=== PATIENT | male | born 1995 | race Hispanic/Latino ===

== ENCOUNTER 2020-03-04 15:37 | Inpatient (IN) | payer OTHER ==
[2020-03-04] VITALS (11 sets, daily range): BP systolic 144–171; BP diastolic 79–100
[~2020-03-04] VITALS: Ht 180.3 cm; Wt 96.6 kg
[2020-03-04] MEDS ORDERED: SODIUM CHLORIDE 0.9% 1000ML 1,000 ML IV ONE ×2 (15:56→18:45)
[2020-03-04] MEDS ORDERED: ONDANSETRON HCL 4 MG/2 ML VIAL ONE ×3 (15:56→19:58)
[2020-03-04] MEDS ORDERED: MORPHINE SULFATE 4 MG/1ML SYG ONE ×2 (15:56→18:46)
[2020-03-04 16:16] LABS: BASOPHILS % (AUTO) 0.4 % (0.0-5.0); HEMATOCRIT 47.2 % (42-54); LYMPHOCYTES % (AUTO) 8.5 % (21.0-51.0); MEAN CORPUSCULAR HEMOGLOBIN 29.1 pg (27.0-33.0); MEAN CORPUSCULAR HGB CONC 33.7 g/dL (32.0-36.0); MEAN CORPUSCULAR VOLUME 86.4 fL (79-99); MONOCYTES % (AUTO) 11.6 % (3.0-13.0); NEUTROPHILS % (AUTO) 79.1 % (40.0-77.0); PLATELET COUNT (AUTO) 305 K/uL (130-400); RED BLOOD CELL COUNT(AUTO) 5.46 MIL/uL (4.50-6.20); RED CELL DISTRIBUTION WIDTH 11.3 % (11.0-15.5); WHITE BLOOD COUNT (AUTO) 16.3 K/uL (4.8-10.8)
[2020-03-04 16:17] LABS: APPEARANCE,URINE Clear (CLEAR); BILIRUBIN,URINE Negative (NEGATIVE); COLOR,URINE Yellow (YELLOW); GLUCOSE, URINE (UA) Negative (NEGATIVE); KETONES,URINE Trace mg/dL (NEGATIVE); LEUKOCYTE ESTERASE ,URINE Negative (NEGATIVE); NITRATE,URINE Negative (NEGATIVE); OCCULT BLOOD,URINE Negative (NEGATIVE); PH,URINE 5.5 (5.0-8.0); PROTEIN,URINE Negative (NEGATIVE)
[2020-03-04] MEDS ORDERED: MORPHINE SULFATE 2 MG/ML 1ML SYG ONE (16:33)
[2020-03-04 16:34] LABS: CREATININE 1.1 mg/dL (0.5-1.5); POTASSIUM 4.2 mmol/L (3.5-5.1)
[2020-03-04 16:40] LABS: BILIRUBIN,TOTAL 0.7 mg/dL (0.2-1.0); TOTAL PROTEIN, SERUM 8.9 g/dL (6.0-8.3)
[2020-03-04] MEDS ORDERED: IOHEXOL-350 75 ML VIAL IV ONE (16:48)
[2020-03-04] MEDS ORDERED: ZOSYN 3.375GM+NS 50ML 50 ML IV ONE (18:46)
[2020-03-04] MEDS: SODIUM CHLORIDE 0.9% 1000ML 1,000 ML IV SCH (19:15)
[2020-03-04] MEDS ORDERED: PROPOFOL 10 MG/ML 20ML VIAL IV ONE ×2 (19:58→21:28)
[2020-03-04] MEDS ORDERED: DEXAMETHASONE SOD PHOSPHATE 10MG/ML 1ML VIAL ONE (19:58)
[2020-03-04] MEDS ORDERED: MIDAZOLAM HCL 1 MG/ML 2ML VIAL ONE (19:58)
[2020-03-04] MEDS ORDERED: LIDOCAINE PF 2% 5ML ABBOJECT ONE (19:58)
[2020-03-04] MEDS ORDERED: FENTANYL CITRATE PF 50 MCG/1 ML 2ML VIAL ONE ×2 (19:59→20:40)
[2020-03-04] MEDS ORDERED: ROCURONIUM 10MG/1ML SYR 10 MG/ML ML ONE (19:59)
[2020-03-04] MEDS ORDERED: BUPIVACAINE/PF 0.5% 30ML VIAL ONE (20:35)
[2020-03-04] MEDS ORDERED: GLYCOPYRROLATE 1 MG/5 ML SYRINGE ONE (21:40)
[2020-03-04] MEDS ORDERED: NEOSTIGMINE 5MG/5ML SYR IV ONE (21:40)
[2020-03-04] MEDS: LACTATED RINGERS 1000ML 1,000 ML IV SCH (21:52)
[2020-03-04] MEDS ORDERED: ONDANSETRON HCL 4 MG/2 ML VIAL IVP PRN (22:00)
[2020-03-04] MEDS ORDERED: MORPHINE SULFATE 4 MG/1ML SYG IV PRN (22:00)
[2020-03-05 03:48] VITALS: BP 121/64
[2020-03-05 04:45] LABS: BASOPHILS % (AUTO) 0.2 % (0.0-5.0); EOSINOPHILS % (AUTO) 0.9 % (0.0-8.0); HEMATOCRIT 42.5 % (42-54); LYMPHOCYTES % (AUTO) 2.2 % (21.0-51.0); MEAN CORPUSCULAR HGB CONC 33.6 g/dL (32.0-36.0); MEAN CORPUSCULAR VOLUME 86.2 fL (79-99); MONOCYTES % (AUTO) 9.2 % (3.0-13.0); NEUTROPHILS % (AUTO) 86.9 % (40.0-77.0); PLATELET COUNT (AUTO) 284 K/uL (130-400); RED BLOOD CELL COUNT(AUTO) 4.93 MIL/uL (4.50-6.20); RED CELL DISTRIBUTION WIDTH 11.2 % (11.0-15.5); WHITE BLOOD COUNT (AUTO) 23.6 K/uL (4.8-10.8)
[2020-03-05 04:56] LABS: CREATININE 1.3 mg/dL (0.5-1.5); POTASSIUM 4.1 mmol/L (3.5-5.1)
[2020-03-05] MEDS ORDERED: ZOSYN 3.375GM+NS 50ML 50 ML IV SCH ×2 (05:00→21:00)
[2020-03-05] MEDS: SODIUM CHLORIDE 0.9% 1000ML 1,000 ML IV SCH ×4 (05:15→18:55)
[2020-03-05] MEDS: MORPHINE SULFATE 4 MG/1ML SYG IVP PRN ×3 (05:49→20:04)
[2020-03-05] MEDS: LACTATED RINGERS 1000ML 1,000 ML IV SCH ×2 (05:49→20:04)
[2020-03-05] MEDS: ZOSYN 3.375GM+NS 50ML 50 ML IV SCH ×3 (05:56→20:04)
[2020-03-05 08:13] VITALS: BP 137/83
[2020-03-05 12:31] VITALS: BP 137/78
[2020-03-05 16:13] VITALS: BP 139/82
[2020-03-05 19:48] VITALS: BP 146/81
[2020-03-05] MEDS: ONDANSETRON HCL 4 MG/2 ML VIAL IVP PRN (20:03)
[2020-03-05 23:59] VITALS: BP 133/78
[2020-03-06] VITALS (7 sets, daily range): BP systolic 124–159; BP diastolic 67–94
[2020-03-06] MEDS: ONDANSETRON HCL 4 MG/2 ML VIAL IVP PRN ×4 (03:54→20:19)
[2020-03-06 04:55] LABS: BASOPHILS % (AUTO) 0.2 % (0.0-5.0); EOSINOPHILS % (AUTO) 0.4 % (0.0-8.0); HEMATOCRIT 42.3 % (42-54); LYMPHOCYTES % (AUTO) 2.9 % (21.0-51.0); MEAN CORPUSCULAR HEMOGLOBIN 28.7 pg (27.0-33.0); MEAN CORPUSCULAR HGB CONC 33.1 g/dL (32.0-36.0); MEAN CORPUSCULAR VOLUME 86.7 fL (79-99); MONOCYTES % (AUTO) 6.5 % (3.0-13.0); NEUTROPHILS % (AUTO) 89.2 % (40.0-77.0); PLATELET COUNT (AUTO) 274 K/uL (130-400); RED BLOOD CELL COUNT(AUTO) 4.88 MIL/uL (4.50-6.20); RED CELL DISTRIBUTION WIDTH 11.3 % (11.0-15.5); WHITE BLOOD COUNT (AUTO) 18.5 K/uL (4.8-10.8)
[2020-03-06 05:03] LABS: CREATININE 1.1 mg/dL (0.5-1.5); POTASSIUM 3.6 mmol/L (3.5-5.1)
[2020-03-06] MEDS: ZOSYN 3.375GM+NS 50ML 50 ML IV SCH ×3 (05:34→20:19)
[2020-03-06] MEDS: SODIUM CHLORIDE 0.9% 1000ML 1,000 ML IV SCH ×2 (08:15→11:15)
[2020-03-06] MEDS: MORPHINE SULFATE 4 MG/1ML SYG IVP PRN ×3 (11:02→16:20)
--- NOTE | 2020-03-06 11:04 | NUR ---
EMESIS X1 PATIENT IS VERY DISTENDED. COMPLAINS OF FEELING LIKE HAVING A BM BUT UNABLE TO, NOT PASSING GAS YET, HE WALKED AROUND THE UNIT TO SEE IF THAT HELPED. C/O ABD PAIN, TENDERNESS TO THE RLQ, N&V. ZOFRAN AND MORPHINE GIVEN. WILL CONTINUE TO MONITOR
[2020-03-06] MEDS: LACTATED RINGERS 1000ML 1,000 ML IV SCH (14:23)
--- NOTE | 2020-03-06 17:50 | NUR ---
INITIAL: Met with pt this afternoon to discuss dcp. Pt mentions that he lives w his parents. Prior to admission he was independent w ambulation and ADLs. HE does not own any DME or receive services. PEr pt his parents will be able to assist him as needed and he feels safe and comfortable to return home at me. CM to continue to follow and wait for Md recommendations. Addendum: 03/06/20 at 1751 by CHRISTIANO ANN Amended: Links added.
--- NOTE | 2020-03-06 22:30 | NUR ---
PATIENT COMPLAINS OF PAIN BUT STATES IF HE CAN GET A MEDICATION THAT DOES NOT MAKE HIM NAUSEATED. PATIENT CURRENTLY ON MORPHINE 4MG IV Q4H. CALLED AND AWARE. NEW ORDERS RECEIVED FOR TYLENOL #3 1 TAB PO Q4H PRN PAIN. ORDERS RECEIVED AND CARRIED OUT. PATIENT AWARE. WILL CONTINUE TO BE OBSERVED. Addendum: 03/07/20 at 0313 by PAULINO LOJA RN RN Amended: Links added.
--- NOTE | 2020-03-07 01:00 | NUR ---
ROUNDS PATIENT RESTING IN BED WITH OU CLOSED. EASILY AROUSED. NO COMPLAINTS OF PAIN VOICED AT THIS TIME. VITALS STABLE. AFEBRILE. RESP EVEN AND UNLABORED. NO SOB NOTED. ON ROOM AIR. TOLERATING IVF WELL. NO NAUSEA OR VOMITING NOTED. LR INFUSING AT 75ML/HR. NO SIGNS OF DISTRESS NOTED. CALL LIGHT WITHIN REACH. WILL CONTINUE TO BE OBSERVED. Addendum: 03/07/20 at 0309 by PAULINO LOJA RN RN Amended: Links added.
[2020-03-07] MEDS: ACETAMINOPHEN-CODEINE 300/30MG TAB PO PRN ×3 (01:11→20:31)
[2020-03-07 03:15] VITALS: BP 127/72
[2020-03-07] MEDS: ZOSYN 3.375GM+NS 50ML 50 ML IV SCH ×3 (04:31→20:30)
[2020-03-07 05:14] LABS: BASOPHILS % (AUTO) 0.1 % (0.0-5.0); EOSINOPHILS % (AUTO) 0.1 % (0.0-8.0); HEMATOCRIT 38.3 % (42-54); LYMPHOCYTES % (AUTO) 4.6 % (21.0-51.0); MEAN CORPUSCULAR HEMOGLOBIN 28.9 pg (27.0-33.0); MEAN CORPUSCULAR HGB CONC 33.2 g/dL (32.0-36.0); MONOCYTES % (AUTO) 10.2 % (3.0-13.0); NEUTROPHILS % (AUTO) 83.8 % (40.0-77.0); PLATELET COUNT (AUTO) 275 K/uL (130-400); RED CELL DISTRIBUTION WIDTH 11.3 % (11.0-15.5); WHITE BLOOD COUNT (AUTO) 13.8 K/uL (4.8-10.8)
[2020-03-07 05:21] LABS: CREATININE 1.1 mg/dL (0.5-1.5); POTASSIUM 3.8 mmol/L (3.5-5.1)
[2020-03-07 08:32] VITALS: BP 152/95
[2020-03-07] MEDS: ONDANSETRON HCL 4 MG/2 ML VIAL IVP PRN ×2 (10:26→20:30)
[2020-03-07 13:06] VITALS: BP 169/84
[2020-03-07 16:04] VITALS: BP 148/88
[2020-03-07] MEDS: LACTATED RINGERS 1000ML 1,000 ML IV SCH (16:32)
[2020-03-07 20:41] VITALS: BP 156/87
[2020-03-07 23:31] VITALS: BP 143/86
[2020-03-08 03:49] VITALS: BP 139/95
[2020-03-08] MEDS: ZOSYN 3.375GM+NS 50ML 50 ML IV SCH ×3 (04:47→19:59)
[2020-03-08] MEDS: ONDANSETRON HCL 4 MG/2 ML VIAL IVP PRN ×3 (05:12→17:35)
[2020-03-08] MEDS: ACETAMINOPHEN-CODEINE 300/30MG TAB PO PRN ×3 (05:12→17:35)
[2020-03-08 07:30] VITALS: BP 140/82
--- NOTE | 2020-03-08 09:00 | NUR ---
ADVISED BY PRIMARY RN PATIENT ON CLEARS, NO ORDER TO ADVANCE AND LOW GRADE TEMPS
[2020-03-08 11:00] VITALS: BP 146/93
[2020-03-08] MEDS: LACTATED RINGERS 1000ML 1,000 ML IV SCH ×3 (12:03→21:30)
[2020-03-08 16:00] VITALS: BP 152/98
[2020-03-08 20:00] VITALS: BP 149/92
--- NOTE | 2020-03-08 20:00 | NUR ---
MEDS SHIFT ASSESSMENT DONE., PLEASE REFER TO CHART. PT WAS COMPLAINING OF POST OP PAINS AND WAS ABOUT TO GIVE MORPHINE BUT PT CLAIMS AFTER HE WALKED AND HAD A BM THE PAIN SUBSIDED. PT CLAIMS HE DOES NOT HAVE ANY NEED FOR PAIN MED AT THIS TIME. DUE MEDS ADMINISTERED, TOLERATED WELL. KEPT RESTED AND COMFORTABLE IN BED. CALL LIGHT WITHIN REACH. Addendum: 03/08/20 at 3375 by OLAYINKA CRUZ RN RN Amended: Links added.
--- NOTE | 2020-03-08 20:30 | NUR ---
FEVER PCP REPORTS THAT PT HAS A FEVER OF 102.4. KEPT ROOM TEMPERATURE COOL. REMOVED BLANKETS FOR NOW. COLD PACKS APPLIED ON PT.
--- NOTE | 2020-03-08 20:55 | NUR ---
PGED DR LIN PAGED VIA ANSWERING SERVICE TO REFER HIGH TEMPERATURE. CALLED BACK AND NEW ORDERS GIVEN, PLEASE REFER TO CPOE. WILL MEDICATE PT.
[2020-03-08] MEDS: ACETAMINOPHEN 325 MG TAB PO PRN (21:21)
--- NOTE | 2020-03-08 21:21 | NUR ---
MEDS PT HAD A SHOWER, TOLERATED ACTIVITY WELL. SURGEON CHIEF IN TO DRAW BLOOD. SPECIMEN CUP PROVIDED FOR PT FOR URINE COLLECTION. PACKAGE WRAPPER IN AND CHEST X-RAY DONE. TYLENOL PO GIVEN FOR FEVER. NEW IVF BAG HUNG AND NEW TUBING USED. KEPT COMFORTABLE IN BED. WILL RE-ASSESS PT.
--- NOTE | 2020-03-08 22:00 | NUR ---
RE-CHECK PT'S TEMPERATURE [id number]. CREAM BARRIER APPLIED TO RASH ON BACK AREA. COLD PACKS APPLIED ON PT. WILL CONTINUE TO MONITOR.
[2020-03-09 00:36] VITALS: BP 148/80
--- NOTE | 2020-03-09 02:00 | NUR ---
ROUNDS PT RESTING WELL, FAIRLY ASLEEP WITH RESPIRATIONS EVEN AND UNLABORED. NO NOTED DISTRESS. KEPT UNDISTURBED FOR NOW. WILL MONITOR PT. CALL LIGHT WITHIN REACH.
[2020-03-09 04:00] VITALS: BP 144/85
[2020-03-09] MEDS: ZOSYN 3.375GM+NS 50ML 50 ML IV SCH (04:12)
[2020-03-09 04:14] LABS: APPEARANCE,URINE Clear (CLEAR); BILIRUBIN,URINE Small (NEGATIVE); COLOR,URINE Dark Yellow (YELLOW); GLUCOSE, URINE (UA) Negative (NEGATIVE); KETONES,URINE >=160 mg/dL (NEGATIVE); LEUKOCYTE ESTERASE ,URINE Negative (NEGATIVE); NITRATE,URINE Negative (NEGATIVE); OCCULT BLOOD,URINE Negative (NEGATIVE); PH,URINE 6.5 (5.0-8.0); PROTEIN,URINE POS 2+ mg/dL (NEGATIVE)
--- NOTE | 2020-03-09 04:17 | NUR ---
PAIN PT WENT TO THE BATHROOM THEN BACK TO BED WITH MINIMUM ASSIST. PT CLAIMS OF ABDOMINAL PAINS. PT ASKS FOR PAIN AND NAUSEA MEDICATION. ZOFRAN AND MORPHINE IV GIVEN. KEPT NPO FOR CT. KEPT COMFORTABLE IN BED. IV ZOSYN HUNG WITH NEW TUBINGS. WILL RE-ASSESS PT. Addendum: 03/09/20 at 3390 by OLAYINKA CRUZ RN RN Amended: Links added.
[2020-03-09] MEDS: ONDANSETRON HCL 4 MG/2 ML VIAL IVP PRN ×3 (04:19→19:56)
[2020-03-09] MEDS: MORPHINE SULFATE 4 MG/1ML SYG IVP PRN ×3 (04:19→19:56)
[2020-03-09 04:28] LABS: BACTERIA,URINE None Seen /HPF (None Seen); RBC,URINE None Seen /HPF (0-1); SQUAMOUS EPITHELIAL CELL,UR Rare /HPF (0-2); WBC,URINE None Seen /HPF (0-1)
[2020-03-09 05:02] LABS: BASOPHILS % (AUTO) 0.3 % (0.0-5.0); EOSINOPHILS % (AUTO) 2.8 % (0.0-8.0); HEMATOCRIT 38.6 % (42-54); LYMPHOCYTES % (AUTO) 4.8 % (21.0-51.0); MEAN CORPUSCULAR HEMOGLOBIN 27.9 pg (27.0-33.0); MEAN CORPUSCULAR HGB CONC 32.9 g/dL (32.0-36.0); MEAN CORPUSCULAR VOLUME 84.8 fL (79-99); MONOCYTES % (AUTO) 15.4 % (3.0-13.0); NEUTROPHILS % (AUTO) 73.2 % (40.0-77.0); PLATELET COUNT (AUTO) 289 K/uL (130-400); RED BLOOD CELL COUNT(AUTO) 4.55 MIL/uL (4.50-6.20); RED CELL DISTRIBUTION WIDTH 11.8 % (11.0-15.5); WHITE BLOOD COUNT (AUTO) 14.7 K/uL (4.8-10.8)
[2020-03-09] MEDS: ACETAMINOPHEN 325 MG TAB PO PRN (05:04)
[2020-03-09 05:15] LABS: BILIRUBIN,TOTAL 1.1 mg/dL (0.2-1.0); POTASSIUM 3.2 mmol/L (3.5-5.1); TOTAL PROTEIN, SERUM 6.5 g/dL (6.0-8.3)
--- NOTE | 2020-03-09 07:40 | NUR ---
REPORT REPORT GIVEN TO AM NURSE LUCAS RN. ENDORSING WITH PENDING CT SCAN TODAY. TALKED WITH [employer] ABOUT CT SCAN AND VERIFIED ORDER FOR CT WITH IV CONTRAST. FOR MORE CARE.
[2020-03-09] MEDS ORDERED: IOHEXOL-350 75 ML VIAL IV ONE (08:14)
[2020-03-09 08:20] VITALS: BP 133/78
[2020-03-09] MEDS ORDERED: POTASSIUM CHLORIDE 10% ELIXIR 20 MEQ/15 ML UDCUP PO PRN (09:30)
[2020-03-09] MEDS ORDERED: POTASSIUM CHLORIDE 20MEQ/100ML 100 ML IV PRN ×2 (09:30)
[2020-03-09] MEDS ORDERED: LIDOCAINE HCL-MPF 1% 2ML VIAL IV PRN ×2 (09:30)
[2020-03-09] MEDS: LACTATED RINGERS 1000ML 1,000 ML IV SCH (09:52)
[2020-03-09] MEDS: POTASSIUM CHLORIDE 20 MEQ ERTAB PO PRN ×2 (09:52→10:48)
[2020-03-09 11:00] VITALS: BP 148/89
[2020-03-09] MEDS ORDERED: HYDROCORTISONE 0.5% 30 GM OINT TP SCH (11:00)
--- NOTE | 2020-03-09 11:48 | NUR ---
Patient reports two incontinent stools this morning, liquid in consistency. Stools occurred after admininstrations of potassium PO ER tab. Patient reports not normally being incontinent. Reported findings to Katrin Hernandez MD. Per Dr. Hernandez, hold third dose of potassium replacement for K+ level of 3.2.
[2020-03-09] MEDS ORDERED: VANCOMYCIN PROTOCOL PER PHARMACY IV SCH (13:00)
[2020-03-09] MEDS: FLUCONAZOLE 400 MG/NS 200 ML 200 ML IV SCH (13:25)
[2020-03-09] MEDS: HYDROCORTISONE 1% 28.35 GM CREAM TP SCH ×2 (13:26→21:00)
[2020-03-09] MEDS ORDERED: COMPOUND IV REFRIGERATED 1 EACH IVSOLN MISC PRN (14:15)
[2020-03-09] MEDS: VANCOMYCIN 2 GM in SODIUM CHLORIDE 0.9% 500ML 500 ML IV SCH ×2 (14:15→15:49)
[2020-03-09] MEDS: LEVOFLOXACIN 750 MG/D5W 150 ML 150 ML IV SCH (14:30)
--- NOTE | 2020-03-09 14:50 | NUR ---
Per classification case manager Nicho, pending approval from [facility] to receive patient after 3:00 pm cuttoff. [facility] to appeal to [facility] for extension on admission.
[2020-03-09 15:00] VITALS: BP 144/94
[2020-03-09 20:00] VITALS: BP 144/84
[2020-03-10] VITALS (7 sets, daily range): BP systolic 126–146; BP diastolic 67–89
[2020-03-10] MEDS: VANCOMYCIN 1.25 GM in SODIUM CHLORIDE 0.9% 250 ML IV SCH ×4 (00:47→21:05)
[2020-03-10] MEDS: ONDANSETRON HCL 4 MG/2 ML VIAL IVP PRN ×3 (02:17→15:54)
[2020-03-10] MEDS: MORPHINE SULFATE 4 MG/1ML SYG IVP PRN ×3 (02:18→15:54)
[2020-03-10] MEDS: LACTATED RINGERS 1000ML 1,000 ML IV SCH ×2 (02:19→13:00)
[2020-03-10 05:24] LABS: BASOPHILS % (AUTO) 0.6 % (0.0-5.0); EOSINOPHILS % (AUTO) 1.7 % (0.0-8.0); HEMATOCRIT 38.5 % (42-54); LYMPHOCYTES % (AUTO) 4.1 % (21.0-51.0); MEAN CORPUSCULAR HEMOGLOBIN 28.5 pg (27.0-33.0); MEAN CORPUSCULAR VOLUME 86.5 fL (79-99); NEUTROPHILS % (AUTO) 73.2 % (40.0-77.0); PLATELET COUNT (AUTO) 308 K/uL (130-400); RED BLOOD CELL COUNT(AUTO) 4.45 MIL/uL (4.50-6.20); RED CELL DISTRIBUTION WIDTH 11.9 % (11.0-15.5); WHITE BLOOD COUNT (AUTO) 19.2 K/uL (4.8-10.8)
[2020-03-10 05:45] LABS: POTASSIUM 3.6 mmol/L (3.5-5.1)
[2020-03-10] MEDS: HYDROCORTISONE 1% 28.35 GM CREAM TP SCH ×2 (07:52→21:05)
[2020-03-10] MEDS: FLUCONAZOLE 400 MG/NS 200 ML 200 ML IV SCH (13:00)
[2020-03-10] MEDS: LACTOBACILLUS RHAMNOSUS GG 1 EACH CAP.SPRINK PO SCH ×2 (13:00→21:05)
[2020-03-10] MEDS: PANTOPRAZOLE SODIUM 40 MG TABLET.DR PO SCH (15:27)
[2020-03-10] MEDS: LEVOFLOXACIN 750 MG/D5W 150 ML 150 ML IV SCH (15:36)
[2020-03-11] MEDS: LACTATED RINGERS 1000ML 1,000 ML IV SCH ×3 (00:35→20:24)
[2020-03-11] MEDS ORDERED: LOPERAMIDE 1 MG/7.5 ML UDCUP PO PRN (00:45)
[2020-03-11] MEDS ORDERED: LOPERAMIDE HCL 2 MG CAP PO ONE (00:48)
[2020-03-11] MEDS: LOPERAMIDE HCL 2 MG CAP PO SCH ×2 (01:25→03:01)
--- NOTE | 2020-03-11 03:02 | NUR ---
0042: Patient has had x5 watery stool, checked on results of stool collected everything was negative. I paged Sebastien BENNETT via answering service. 0045: Sebastien BENNETT returned the call informed her of above mention, orders for Imodium 2mg initial dose, the 1 mg TID prn po. Patient made aware of new orders, informed him would administer when available. 0125; Patient given the first dose of Imodium 2 mg at this time, po. 0301: Patient again had a watery stool, another dose of Imodium 1 mg administered po. Patient encouraged to call as needed, verbalized understanding.
[2020-03-11 03:38] VITALS: BP 125/78
[2020-03-11 04:16] LABS: HEMATOCRIT 36.1 % (42-54); MEAN CORPUSCULAR HEMOGLOBIN 28.3 pg (27.0-33.0); MEAN CORPUSCULAR HGB CONC 33.5 g/dL (32.0-36.0); MEAN CORPUSCULAR VOLUME 84.3 fL (79-99); PLATELET COUNT (AUTO) 319 K/uL (130-400); RED BLOOD CELL COUNT(AUTO) 4.28 MIL/uL (4.50-6.20); RED CELL DISTRIBUTION WIDTH 12.2 % (11.0-15.5)
[2020-03-11] MEDS: MORPHINE SULFATE 4 MG/1ML SYG IVP PRN (04:32)
[2020-03-11] MEDS: ONDANSETRON HCL 4 MG/2 ML VIAL IVP PRN ×2 (04:32→04:44)
[2020-03-11 04:43] LABS: CREATININE 0.9 mg/dL (0.5-1.5); POTASSIUM 3.3 mmol/L (3.5-5.1)
[2020-03-11 04:51] LABS: BAND NEUTROPHILS % (MANUAL) 6 % (0-2); EOSINOPHILS % (MANUAL) 3 % (1-6); LYMPHOCYTES % (MANUAL) 12 % (22-44); MAN.DIFF COMMENT-IMPRESSION MANUAL DIFFERENTIAL; MONOCYTES % (MANUAL) 14 % (2-9); PLATELET MORPHOLOGY COMMENT ADEQUATE; SEGMENTED NEUTROPHILS % 65 % (40-70)
[2020-03-11] MEDS: VANCOMYCIN 1.25 GM in SODIUM CHLORIDE 0.9% 250 ML IV SCH (05:43)
[2020-03-11 08:00] VITALS: BP 123/78
[2020-03-11] MEDS: PANTOPRAZOLE SODIUM 40 MG TABLET.DR PO SCH (09:42)
[2020-03-11] MEDS: LACTOBACILLUS RHAMNOSUS GG 1 EACH CAP.SPRINK PO SCH ×2 (09:42→20:18)
[2020-03-11] MEDS: HYDROCORTISONE 1% 28.35 GM CREAM TP SCH ×2 (09:44→20:19)
[2020-03-11] MEDS ORDERED: PANTOPRAZOLE SODIUM 40 MG TABLET.DR PO SCH (11:50)
[2020-03-11 12:00] VITALS: BP 129/73
[2020-03-11] MEDS: FLUCONAZOLE 400 MG/NS 200 ML 200 ML IV SCH (13:53)
[2020-03-11] MEDS: LEVOFLOXACIN 750 MG/D5W 150 ML 150 ML IV SCH (13:53)
[2020-03-11] MEDS: VANCOMYCIN 1.75 GM in SODIUM CHLORIDE 0.9% 250 ML IV SCH ×2 (15:58→22:58)
[2020-03-11 16:00] VITALS: BP 144/81
[2020-03-11 20:14] VITALS: BP 129/78
[2020-03-11 23:43] VITALS: BP 139/77
--- NOTE | 2020-03-12 02:32 | NUR ---
ROUNDS PT RESTING WITH EYES CLOSED IN A RELAXED STATE. OBSERVED RISE AND FALL OF CHEST. EVEN, UNLABORED RESPIRATIONS. NO DISTRESS NOTED. LR RUNNING AT 75 ML/ HR. CALL LIGHT WITHIN REACH. WILL CONTINUE TO MONITOR.
[2020-03-12 03:42] VITALS: BP 131/80
[2020-03-12] MEDS: VANCOMYCIN 1.75 GM in SODIUM CHLORIDE 0.9% 250 ML IV SCH ×2 (06:04→17:12)
[2020-03-12 08:00] VITALS: BP 142/79
[2020-03-12] MEDS: PANTOPRAZOLE SODIUM 40 MG TABLET.DR PO SCH (08:26)
[2020-03-12] MEDS: LACTOBACILLUS RHAMNOSUS GG 1 EACH CAP.SPRINK PO SCH ×2 (08:26→22:04)
[2020-03-12 12:00] VITALS: BP 148/81
[2020-03-12] MEDS: LEVOFLOXACIN 750 MG/D5W 150 ML 150 ML IV SCH (13:05)
[2020-03-12] MEDS: FLUCONAZOLE 400 MG/NS 200 ML 200 ML IV SCH (13:05)
[2020-03-12] MEDS: LACTATED RINGERS 1000ML 1,000 ML IV SCH (13:07)
[2020-03-12 16:00] VITALS: BP 144/89
[2020-03-12] MEDS: HYDROCORTISONE 1% 28.35 GM CREAM TP SCH ×2 (17:13→22:11)
[2020-03-12 19:00] VITALS: BP 139/92
[2020-03-12] MEDS: VANCOMYCIN 1.25 GM in SODIUM CHLORIDE 0.9% 250 ML IV SCH (22:03)
[2020-03-12 23:32] VITALS: BP 146/83
[2020-03-13] MEDS: LOPERAMIDE HCL 2 MG CAP PO SCH (00:45)
[2020-03-13] MEDS: VANCOMYCIN 1.25 GM in SODIUM CHLORIDE 0.9% 250 ML IV SCH ×4 (03:06→21:32)
[2020-03-13 03:37] VITALS: BP 158/82
[2020-03-13] MEDS: LACTATED RINGERS 1000ML 1,000 ML IV SCH ×2 (05:09→19:12)
[2020-03-13 06:05] LABS: HEMATOCRIT 36.1 % (42-54); MEAN CORPUSCULAR HEMOGLOBIN 28.1 pg (27.0-33.0); MEAN CORPUSCULAR VOLUME 85.3 fL (79-99); PLATELET COUNT (AUTO) 348 K/uL (130-400); RED BLOOD CELL COUNT(AUTO) 4.23 MIL/uL (4.50-6.20); RED CELL DISTRIBUTION WIDTH 12.4 % (11.0-15.5); WHITE BLOOD COUNT (AUTO) 13.9 K/uL (4.8-10.8)
[2020-03-13 06:14] LABS: POTASSIUM 3.5 mmol/L (3.5-5.1)
[2020-03-13 06:42] LABS: BAND NEUTROPHILS % (MANUAL) 9 % (0-2); EOSINOPHILS % (MANUAL) 3 % (1-6); LYMPHOCYTES % (MANUAL) 11 % (22-44); MAN.DIFF COMMENT-IMPRESSION MANUAL DIFFERENTIAL; METAMYELOCYTES % 4 % (0-0); MONOCYTES % (MANUAL) 8 % (2-9); PLATELET MORPHOLOGY COMMENT ADEQUATE; REACTIVE LYMPHOCYTES 1 % (0-0); SEGMENTED NEUTROPHILS % 64 % (40-70)
[2020-03-13 08:00] VITALS: BP 131/75
[2020-03-13] MEDS: PANTOPRAZOLE SODIUM 40 MG TABLET.DR PO SCH (09:52)
[2020-03-13] MEDS: LACTOBACILLUS RHAMNOSUS GG 1 EACH CAP.SPRINK PO SCH ×2 (09:52→20:25)
[2020-03-13 12:02] VITALS: BP 133/79
[2020-03-13] MEDS: HYDROCORTISONE 1% 28.35 GM CREAM TP SCH ×2 (12:28→20:26)
[2020-03-13] MEDS: LEVOFLOXACIN 750 MG/D5W 150 ML 150 ML IV SCH (14:33)
[2020-03-13] MEDS: FLUCONAZOLE 400 MG/NS 200 ML 200 ML IV SCH (14:33)
[2020-03-13 16:00] VITALS: BP 141/93
[2020-03-13 19:10] VITALS: BP 144/95
--- NOTE | 2020-03-13 19:20 | NUR ---
KYLE PT REQUESTED TO SHOWER AT THIS TIME. SALINE LOCKED PIV. PCP IN TO ASSIST PT. Addendum: 03/13/20 at 2302 by OLAYINKA CRUZ RN RN Amended: Links added.
--- NOTE | 2020-03-13 20:25 | NUR ---
MEDS SHIFT ASSESSMENT DONE, PLEASE REFER TO CHART. DUE MEDS ADMINISTERED, TOLERATED WELL. KEPT RESTED AND COMFORTABLE IN BED. CALL LIGHT WITHIN REACH. WILL MONITOR PT. Addendum: 03/13/20 at 2314 by OLAYINKA CRUZ RN RN Amended: Links added.
[2020-03-13 23:23] VITALS: BP 148/92
[2020-03-14] MEDS: LACTATED RINGERS 1000ML 1,000 ML IV SCH (00:48)
--- NOTE | 2020-03-14 02:00 | NUR ---
ROUNDS PT RESTING WELL, FAIRLY ASLEEP. WITH RESPIRATIONS EVEN AND UNLABORED. NO NOTED DISTRESS. KEPT RESTED AND COMFORTABLE IN BED. CALL LIGHT WITHIN REACH. WILL MONITOR PT.
[2020-03-14] MEDS: VANCOMYCIN 1.25 GM in SODIUM CHLORIDE 0.9% 250 ML IV SCH (02:54)
[2020-03-14] MEDS: ACETAMINOPHEN-CODEINE 300/30MG TAB PO PRN (03:05)
--- NOTE | 2020-03-14 03:07 | NUR ---
PAIN PT COMPLAINTS OF BACK PAINS. WARM PACKS APPLIED TO BACK. MEDICATED WITH TYLENOL #3 PO. KEPT COMFORTABLE. WILL RE-ASSESS PT.
[2020-03-14 04:00] VITALS: BP 131/73
--- NOTE | 2020-03-14 05:24 | NUR ---
ROUNDS PT RESTING IN BED, FAIRLY ASLEEP. NO DISTRESS NOTED. KEPT COMFORTABLE IN BED. FOR MORE CARE.
[2020-03-14 08:39] VITALS: BP 132/86
[2020-03-14] MEDS: PANTOPRAZOLE SODIUM 40 MG TABLET.DR PO SCH (09:54)
[2020-03-14] MEDS: LACTOBACILLUS RHAMNOSUS GG 1 EACH CAP.SPRINK PO SCH (09:55)
[2020-03-14] MEDS: HYDROCORTISONE 1% 28.35 GM CREAM TP SCH (09:58)
--- NOTE | 2020-03-14 10:15 | NUR ---
Notified Dr. Bai and Dr. Collins of patient's increasing itching and rash. Patient states when vancomycin is infusing, itchiness increases. Per Dr. Collins and Dr. Bai, discontinue vancomycin. Received verbal order for Benadryl 25 mg IV Push once to be administered for itching.
[2020-03-14] MEDS ORDERED: DiphenhydrAMINE HCL 50 MG/ML VIAL IV SCH (10:45)
[2020-03-14 11:16] LABS: HEMATOCRIT 40.1 % (42-54); MEAN CORPUSCULAR HEMOGLOBIN 28.4 pg (27.0-33.0); MEAN CORPUSCULAR HGB CONC 32.4 g/dL (32.0-36.0); MEAN CORPUSCULAR VOLUME 87.6 fL (79-99); RED BLOOD CELL COUNT(AUTO) 4.58 MIL/uL (4.50-6.20); RED CELL DISTRIBUTION WIDTH 12.5 % (11.0-15.5); WHITE BLOOD COUNT (AUTO) 15.8 K/uL (4.8-10.8)
[2020-03-14 11:27] LABS: ALBUMIN 2.2 g/dL (3.5-5.0); BILIRUBIN,TOTAL 0.7 mg/dL (0.2-1.0); CREATININE 0.9 mg/dL (0.5-1.5); POTASSIUM 3.4 mmol/L (3.5-5.1); TOTAL PROTEIN, SERUM 6.8 g/dL (6.0-8.3)
[2020-03-14 11:35] VITALS: BP 129/81
[2020-03-14] MEDS: FLUCONAZOLE 400 MG/NS 200 ML 200 ML IV SCH (12:49)
[2020-03-14] MEDS: LEVOFLOXACIN 750 MG/D5W 150 ML 150 ML IV SCH (13:38)
[2020-03-14] MEDS ORDERED: VANCOMYCIN 1.25 GM in SODIUM CHLORIDE 0.9% 250 ML IV SCH (14:00)
--- NOTE | 2020-03-14 16:20 | NUR ---
Per verbal instructions by JOSE MANUEL Jett, removed ANSON drain from abdominal incision using clean technique. Patient tolerated with minimal discomfort. Site cleansed with betadine, and dressed with 4x4 gauze and medipore tape.
[2020-03-14 16:22] VITALS: BP 148/89
--- NOTE | 2020-03-14 19:00 | NUR ---
Discharge instructions, prescribed medications and follow up appointments reviewed with patient and father. Wound care instructions and importance of hand hygiene emphasized, patient verbalized understanding. Patient assisted to emergency entrance via wheelchair where father transported home.
== END 2020-03-14 19:00 | disposition home or self-care (01) | DRG 853 ==
LOC: EDH 15:37 → EDHIP 18:20 → OBSVTOIN 18:20 → 3DH 22:51 → 3BH 03-07 17:31
PROVIDERS: ADMIT Student in an Organized Health Care Education/Training Program; ATTEND Student in an Organized Health Care Education/Training Program
PROC: 0DTJ4ZZ Resection of Appendix, Percutaneous Endoscopic Approach (ICD-10-PCS; principal; 2020-03-04 20:22)
DX: A41.9 Sepsis, unspecified organism (principal); K35.33 Acute appendicitis with perforation, localized peritonitis, and gangrene, with abscess; E66.9 Obesity, unspecified; R53.81 Other malaise; E87.6 Hypokalemia; R21 Rash and other nonspecific skin eruption; Z68.29 Body mass index [BMI] 29.0-29.9, adult; Z88.8 Allergy status to other drugs, medicaments and biological substances
CPT/HCPCS: 36415; 71045; 74177; 80048; 80053; 80202; 81001; 81003; 83690; 83735; 85025; 85027; 87040; 87088; 87324; 87507; 93005; G0378; J1100; J1200; J1450; J1956; J2001; J2250; J2270; J2405; J2543; J2704; J2710; J3010; J3370; J3490; J7030; J7040; J7050; J7120; Q9967